=== PATIENT | female | born 1980 | race Caucasian/White ===

== ENCOUNTER → 2018-12-28 | Outpatient (CLI) | payer BC ==
--- NOTE | 2019-01-01 07:50 | MM ---
Reason for exam: screening (asymptomatic). Last mammogram was performed 2 years and 3 months ago. History: Patient is nulliparous. Family history of breast cancer in maternal grandmother at age 72. Took hormonal contraceptives for 2 years. Physical Findings: A clinical breast exam by your physician is recommended on an annual basis and results should be correlated with mammographic findings. MG Screening Mammo w CAD Bilateral CC and MLO view(s) were taken. XCCL view(s) were taken of the left breast. Prior study comparison: October 04, 2016, bilateral MG 3d screening mammo w/cad. October 01, 2014, bilateral MG diagnostic mammo w CAD MESSI. There are scattered fibroglandular densities. Finding: There is a 6 mm equal density (isodense), indistinct round mass located 8 cm from the nipple in the 12 o'clock posterior position of the left breast. New finding since October 04, 2016 and October 01, 2014. ASSESSMENT: Incomplete: need additional imaging evaluation, BI-RAD 0 RECOMMENDATION: Special view mammogram of the left breast. If lesion persists on supplemental views, image directed ultrasound is recommended. [facility] will attempt to contact patient to return for supplemental views and ultrasound if indicated.
== END ==
LOC: RADMAMWWP 13:51
PROVIDERS: ATTEND Family Medicine
DX: Z12.31 Encounter for screening mammogram for malignant neoplasm of breast (principal)
CPT/HCPCS: 77067

== ENCOUNTER → 2019-01-14 | Outpatient (CLI) | payer BC ==
--- NOTE | 2019-01-14 11:32 | MM ---
Reason for exam: additional evaluation requested from abnormal screening. Last mammogram was performed 1 month ago. History: Patient is nulliparous. Family history of breast cancer in maternal grandmother at age 72. Took hormonal contraceptives for 2 years. Physical Findings: Nurse did not find any significant physical abnormalities on exam. MG Work Up Mamm w CAD LT Spot compression CC, spot compression MLO, and ML view(s) were taken of the left breast. Prior study comparison: December 28, 2018, bilateral MG screening mammo w CAD. October 04, 2016, bilateral MG 3d screening mammo w/cad. There is no discrete abnormality including area of concern. These results were verbally communicated with the patient and result sheet given to the patient on 01/14/19. ASSESSMENT: Benign, BI-RAD 2 RECOMMENDATION: Return to routine screening mammogram schedule for both breasts.
== END | disposition home or self-care (01) ==
LOC: RADMAMWWP 10:18
PROVIDERS: ATTEND Family Medicine
DX: R92.8 Other abnormal and inconclusive findings on diagnostic imaging of breast (principal)
CPT/HCPCS: 77065

== ENCOUNTER → 2020-06-26 | Outpatient (CLI) | payer BC ==
--- NOTE | 2020-06-29 14:18 | MM ---
Reason for exam: screening (asymptomatic). Last mammogram was performed 1 year and 5 months ago. History: Patient is nulliparous. Family history of breast cancer in maternal grandmother at age 72. Took hormonal contraceptives for 2 years. Physical Findings: A clinical breast exam by your physician is recommended on an annual basis and results should be correlated with mammographic findings. MG Screening Mammo w CAD Bilateral CC and MLO view(s) were taken. Prior study comparison: January 14, 2019, left breast MG work up mamm w CAD LT. December 28, 2018, bilateral MG screening mammo w CAD. The breast tissue is heterogeneously dense. This may lower the sensitivity of mammography. There are benign appearing round calcifications bilaterally. There is no discrete abnormality. ASSESSMENT: Benign, BI-RAD 2 RECOMMENDATION: Routine screening mammogram of both breasts in 1 year.
== END | disposition home or self-care (01) ==
LOC: RADMAMWWP 11:12
PROVIDERS: ATTEND Family Medicine
DX: Z12.31 Encounter for screening mammogram for malignant neoplasm of breast (principal)
CPT/HCPCS: 77067

== ENCOUNTER → 2021-06-28 | Outpatient (CLI) | payer BC ==
--- NOTE | 2021-06-29 09:18 | MM ---
Reason for exam: screening (asymptomatic). Last mammogram was performed 1 year ago. History: Patient is nulliparous. Family history of breast cancer in maternal grandmother at age 72. Took hormonal contraceptives for 2 years. Physical Findings: A clinical breast exam by your physician is recommended on an annual basis and results should be correlated with mammographic findings. MG Screening Mammo w CAD Bilateral CC and MLO view(s) were taken. Prior study comparison: June 26, 2020, bilateral MG screening mammo w CAD. Finding: There is a 6 mm equal density (isodense), obscured mass in the upper inner quadrant of the right breast. ASSESSMENT: Incomplete: need additional imaging evaluation, BI-RAD 0 RECOMMENDATION: Special view mammogram of the right breast. If lesion persists on supplemental views, image directed ultrasound is recommended. [facility] will attempt to contact patient to return for supplemental views and ultrasound if indicated.
== END | disposition home or self-care (01) ==
LOC: RADMAMWWP 11:12
PROVIDERS: ATTEND Obstetrics & Gynecology
DX: Z12.31 Encounter for screening mammogram for malignant neoplasm of breast (principal); Z79.3 Long term (current) use of hormonal contraceptives; Z80.3 Family history of malignant neoplasm of breast
CPT/HCPCS: 77067

== ENCOUNTER → 2021-07-07 | Outpatient (CLI) | payer BC ==
--- NOTE | 2021-07-08 09:04 | MM ---
Reason for exam: additional evaluation requested from abnormal screening. Last mammogram was performed less than 1 month ago. History: Patient is nulliparous. Family history of breast cancer in maternal grandmother at age 72. Took hormonal contraceptives for 2 years. Physical Findings: Nurse did not find any significant physical abnormalities on exam. MG 3D Work Up W/Cad RT Spot compression CC, spot compression MLO, and LM view(s) were taken of the right breast. Prior study comparison: June 28, 2021, bilateral MG screening mammo w CAD. June 26, 2020, bilateral MG screening mammo w CAD. There are scattered fibroglandular densities. There is no discrete abnormality including area of concern. These results were verbally communicated with the patient and result sheet given to the patient on 07/07/21. ASSESSMENT: Negative, BI-RAD 1 RECOMMENDATION: Return to routine screening mammogram schedule for both breasts.
== END | disposition home or self-care (01) ==
LOC: RADMAMWWP 13:32
PROVIDERS: ATTEND Obstetrics & Gynecology
DX: N64.89 Other specified disorders of breast (principal); Z80.3 Family history of malignant neoplasm of breast
CPT/HCPCS: 77061; 77065

== ENCOUNTER → 2021-10-11 | Outpatient (CLI) | payer BC ==
--- NOTE | 2021-10-11 12:23 | US ---
EXAMINATION TYPE: US abdomen complete DATE OF EXAM: 10/11/2021 COMPARISON: NONE CLINICAL HISTORY: 41-year-old female R10.9 Unspecified abdominal pain. Left upper abdominal pain for the past 6 months TECHNIQUE: Multiple sonographic images of the abdomen are obtained. FINDINGS: EXAM MEASUREMENTS: Liver Length: 13.7 cm Gallbladder Wall: 0.2 cm CBD: 0.5 cm Spleen: 10.8 x 3.5 cm Right Kidney: 12.1 x 5.0 x 4.3 cm Left Kidney: 11.3 x 6.1 x 4.7 cm Pancreas: Obscured by bowel gas Liver: Limiting detailed assessment due to large patient body habitus. No definite focal lesion. Gallbladder: No stones seen Evidence for sonographic Ng's sign: No CBD: wnl Spleen: wnl Kidney: No hydronephrosis. Upper IVC: wnl Abd Aorta: wnl IMPRESSION: Exam limited by patient's large body habitus. Pancreas is inadequately visualized. No gallstones or b iliary ductal dilatation.
== END | disposition home or self-care (01) ==
LOC: RADUSWWP 07:37
PROVIDERS: ATTEND Family Medicine
DX: R10.12 Left upper quadrant pain (principal)
CPT/HCPCS: 76700

== ENCOUNTER → 2021-11-09 | Outpatient (CLI) | payer BC ==
--- NOTE | 2021-11-09 13:05 | CT ---
EXAMINATION TYPE: CT abdomen wo con DATE OF EXAM: 11/09/2021 HISTORY: Left Upper Quadrant Pain. CT DLP: 551 mGycm. Automated Exposure Control for Dose Reduction was Utilized. TECHNIQUE: CT scan of the abdomen is performed with oral but without IV contrast. COMPARISON: Ultrasound abdomen October 11, 2021 FINDINGS: Within the limitations of a non-contrast study, the following observations are made. LUNG BASES: Tiny pericardial effusion anterior-inferior aspect. LIVER/GB: Occasional small low dense lesion scattered throughout the liver presumed benign, largest m easures 9 mm left hepatic lobe axial image 21. PANCREAS: No significant abnormality is seen. SPLEEN: No significant abnormality is seen. ADRENALS: No significant abnormality is seen. KIDNEYS: No renal calculi seen bilaterally. Some prominence of the renal pelvis bilaterally left grea ter than right with additional left-sided mild calyceal prominence. No significant hydroureter or obs tructing proximal ureter calculus. BOWEL: Oral contrast reaches level proximal left colon. No suspicious small or large bowel dilatation . LYMPH NODES: No greater than 1cm abdominal lymph nodes are appreciated. OSSEOUS STRUCTURES: No significant abnormality is seen. OTHER: No significant additional abnormality is seen. IMPRESSION: Mild left-sided hydronephrosis without obstructing proximal ureteral calculus or hydroure ter. No renal calculi identified bilaterally. No acute findings otherwise seen.
== END | disposition home or self-care (01) ==
LOC: RADCTMAIN 11:42
PROVIDERS: ATTEND Family Medicine
DX: N13.30 Unspecified hydronephrosis (principal)
CPT/HCPCS: 74150

== ENCOUNTER → 2023-07-10 | Outpatient (CLI) | payer BC ==
--- NOTE | 2023-07-11 08:08 | MM ---
Reason for Exam: Screening (asymptomatic). Last screening mammogram was performed 12 month(s) ago. Patient History: Menarche at age 14. Patient has no children. Currently using Hormonal Contraceptives, for 2 years. Maternal grandmother had breast cancer, age 72. Risk Values: Deedee 5 year model risk: 0.8%. NCI Lifetime model risk: 9.7%. Prior Study Comparison: 06/28/2021 Bilateral Screening Mammogram, [facility]. 07/07/2021 Right Diagnostic Mammogram, [facility]. 07/08/2022 Bilateral MG 3D screening mammo w/cad, [facility]. Tissue Density: There are scattered fibroglandular densities. Findings: Analyzed By CAD. There is no suspicious group of microcalcifications or new suspicious mass in either breast. Overall Assessment: Negative, BI-RAD 1 Management: Screening Mammogram of both breasts in 1 year. . Patient should continue monthly self-breast exams. A clinical breast exam by your physician is recommended on an annual basis. This exam should not preclude additional follow-up of suspicious palpable abnormalities. Note on Deedee scores and lifetime risk: 1. A Deedee score greater than 3% is considered moderate risk. If this is the case, consider specialist referral to assess eligibility for a risk reducing agent. 2. If overall lifetime risk for the development of breast cancer is 20% or higher, the patient may qualify for future screening with alternating mammogram and breast MRI. Electronically signed and approved by: Ho Turner M.D. Radiologis
== END | disposition home or self-care (01) ==
LOC: RADMAMWWP 07:28
PROVIDERS: ATTEND Family Medicine
DX: Z12.31 Encounter for screening mammogram for malignant neoplasm of breast (principal); Z80.3 Family history of malignant neoplasm of breast
CPT/HCPCS: 77063; 77067

== ENCOUNTER 2023-10-27 13:39 | Day surgery (SDC) | payer BC ==
[2023-10-25 12:16] VITALS: BMI 33.6
[2023-10-27] MEDS ORDERED: LACTATED RINGERS 1,000 ML IV SCH (13:47)
[2023-10-27 14:15] VITALS: TEMP 97.3
[2023-10-27] MEDS ORDERED: PROPOFOL 10 MG/ML 20 ML VIAL IV ONE (15:37)
[2023-10-27] MEDS ORDERED: MIDAZOLAM 2 MG/2 ML VIAL ONE (15:37)
--- NOTE | 2023-10-27 15:57 | P.PCN ---
Date of Procedure: 10/27/23 Procedure(s) Performed: BRIEF HISTORY: Patient is a 43-year-old pleasant white female scheduled for an elective colonoscopy as a part of screening for colon cancer. PROCEDURE PERFORMED: Colonoscopy. PREOPERATIVE DIAGNOSIS: Screening for colon cancer. IV sedation per Anesthesia. PROCEDURE: After informed consent was obtained, the patient, was brought into the endoscopy unit. IV sedation was administered by Anesthesia under continuous monitoring. Digital rectal examination was normal. Initially the Olympus CF-160 flexible video colonoscope was then inserted in the rectum, gradually advanced into the cecum without any difficulty. Careful examination was performed as the scope was gradually being withdrawn. Ileocecal valve and the appendiceal orifice were visualized and appeared normal. Prep was fair. Mucosa of the cecum, ascending colon, transverse colon, descending colon, sigmoid colon, and rectum appeared normal. Retroflexion was performed in the rectum and no lesions were seen. The patient tolerated the procedure well. IMPRESSION: Normal-appearing colon from rectum to cecum no evidence of colorectal neoplasia . RECOMMENDATIONS: Findings of this examination were discussed with the patient well as her family. She was advised to have a repeat screening colonoscopy in 10 years..
[2023-10-27 16:13] VITALS: RESP 16
[2023-10-27 16:35] VITALS: BP 114/79; PULSE 98
== END 2023-10-27 16:31 | disposition home or self-care (01) ==
LOC: ORWHC2ENDO 13:39
PROVIDERS: ATTEND Internal Medicine Gastroenterology
DX: Z12.11 Encounter for screening for malignant neoplasm of colon (principal); I10 Essential (primary) hypertension; Z79.899 Other long term (current) drug therapy
CPT/HCPCS: J2250; J2704; G0121

== ENCOUNTER → 2024-08-07 | Outpatient (CLI) | payer BC ==
--- NOTE | 2024-08-14 07:57 | MM ---
Reason for Exam: Screening (asymptomatic). Last mammogram was performed 1 year(s) and 1 month(s) ago. Patient History: Menarche at age 14. Patient has no children. Currently using Hormonal Contraceptives, for 2 years. Maternal grandmother had breast cancer, age 72. Risk Values: Deedee 5 year model risk: 0.9%. NCI Lifetime model risk: 9.6%. Prior Study Comparison: 07/07/2021 Right Diagnostic Mammogram, [facility]. 07/08/2022 Bilateral MG 3D screening mammo w/cad, [facility]. 07/10/2023 Bilateral MG 3D screening mammo w/cad, [facility]. Tissue Density: The breasts are heterogeneously dense, which may obscure small masses. Findings: Analyzed By CAD. There is no suspicious group of microcalcifications or new suspicious mass in either breast. Benign-appearing calcifications. Overall Assessment: Benign, BI-RAD 2 Management: Screening Mammogram of both breasts in 1 year. . Patient should continue monthly self-breast exams. A clinical breast exam by your physician is recommended on an annual basis. This exam should not preclude additional follow-up of suspicious palpable abnormalities. Note on Deedee scores and lifetime risk: 1. A Deedee score greater than 3% is considered moderate risk. If this is the case, consider specialist referral to assess eligibility for a risk reducing agent. 2. If overall lifetime risk for the development of breast cancer is 20% or higher, the patient may qualify for future screening with alternating mammogram and breast MRI. [facility], , 08/14/2024 7:54 AM. Electronically signed and approved by: Fredi Sharpe M.D. Radiologis
== END | disposition home or self-care (01) ==
LOC: RADMAMWWP 06:58
PROVIDERS: ATTEND Family Medicine
DX: Z12.31 Encounter for screening mammogram for malignant neoplasm of breast
CPT/HCPCS: 77063; 77067